=== PATIENT | female | born 1990 | race Two or more races ===

== ENCOUNTER 2016-11-26 17:50 | Emergency (ER) | payer MEDICAID ==
[~2016-11-26] VITALS: Ht 157.5 cm; Wt 56.7 kg
[~2016-11-26 17:50] MED LIST: ACETAMINOPHEN-1 EAC1 ORAL; ASPIRIN325 MG ORAL; AZITHROMYCIN250 MG ORAL; BACTRIM DS TAB1 EAC1 ORAL; IBUPROFEN600 MG ORAL; IBUPROFEN800 M1 PO; MACROBID100 MG ORAL; NITROFURANTOIN100 M2 ORAL; NKM; NORCO 5-325 TA1 EACH ORAL; PHENAZOPYRIDIN200 MG ORAL; VICODIN 5-5001 EACH PO
[2016-11-26 19:26] LABS: APPEARANCE,URINE SLIGHTLY CLOUDY; KETONES,URINE 1+ (NEGATIVE); LEUKOCYTE ESTERASE ,URINE 3+ (NEGATIVE); NITRITE,URINE POSITIVE (NEGATIVE); PH,URINE 5 (4.5-8.0); PROTEIN,URINE 2+ (NEGATIVE); UROBILINOGEN,URINE NORMAL MG/DL (0.0-1.0)
[2016-11-26 19:35] LABS: AMORPHOUS SEDIMENT,UR FEW /LPF; BACTERIA,URINE MODERATE /HPF; SQUAMOUS EPITHELIAL CELL,UR FEW /LPF (NONE/OCC)
[2016-11-26] MEDS ORDERED: PROAIR HFA8.5 GM INH (19:36)
[2016-11-26] MEDS ORDERED: ADVAIR 500-501 EACH INH (19:36)
[2016-11-26] MEDS ORDERED: NITROFURANTOIN100 M2 ORAL (19:36)
[2016-11-26 19:50] VITALS: BP 117/76
--- NOTE | 2016-11-26 23:00 | Emergency Room Report ---
History of Present Illness General Chief Complaint: Female Urogenital Problems Source: Patient Present Illness HPI The patient is a 26 old female presenting for possible urinary tract infection. The patient states that she has had UTIs in the past which have felt similar. The patient denies dysuria but does admit to increased urinary frequency. She denies hematuria or vaginal discharge. The patient denies any other symptoms including nausea, vomiting, fever, chills, flank pain Allergies: Coded Allergies: CEFIXIME (Verified Allergy, Severe, rash, 02/13/13) Patient History Past Medical History: see triage record Pertinent Family History: none Last Menstrual Period: 4-2 Now: No Reviewed Nursing Documentation: PMH: Agreed, PSxH: Agreed Nursing Documentation-PMH Past Medical History: No History, Except For Hx Asthma: Yes Review of Systems All Other Systems: negative except mentioned in HPI Physical Exam Vital Signs Date Time Temp Pulse Resp B/P Pulse Ox O2 Delivery O2 Flow Rate FiO2 11/26/16 18:12 98.1 108 18 117/76 99 Room Air Sp02 EP Interpretation: reviewed, normal General Appearance: no apparent distress, alert, GCS 15, non-toxic Head: normocephalic, atraumatic Eyes: bilateral eye PERRL, bilateral eye normal inspection Gastrointestinal: normal bowel sounds, soft, no mass, no guarding, no hernia, tenderness - suprapubic Genitourinary: normal inspection, no CVA tenderness Musculoskeletal: back normal, gait/station normal, normal range of motion, non- tender Neurologic: alert, oriented x3, responsive, motor strength/tone normal, sensory intact, speech normal Psychiatric: judgement/insight normal, memory normal, mood/affect normal, no suicidal/homicidal ideation Skin: normal color, no rash, warm/dry, well hydrated Lymphatic: no adenopathy Medical Decision Making PA Attestation Dr. Constantino is my supervising physician. Patient management was discussed with my supervising physician Diagnostic Impression: Primary Impression: Urinary tract infection Qualified Codes: N39.0 - Urinary tract infection, site not specified; R31.9 - Hematuria, unspecified Additional Impression: Asthma Qualified Codes: J45.21 - Mild intermittent asthma with (acute) exacerbation ER Course The patient is a 26 old female presenting for possible urinary tract infection Differential diagnosis considered but not limited to: UTI, vaginitis, pyelonephritis, pyelonephrosis, PID, ectopic PE: Vitals WNL. NAD. Abdomen: Normal appearance. Non distended. No ecchymosis. Normal BS. + TTP over suprapubic region. No McBurney point tenderness. No guarding. No CVA tenderness Lungs CTA bilat Urinalysis is consistent with UTI. The patient will be discharged with a prescription for Macrobid and is given a refill of asthma medications. ER precautions are given Laboratory Tests Test 11/26/16 18:45 Urine Color Yellow Urine Appearance Slightly cloudy Urine pH 5 (4.5-8.0) Urine Specific [place] 1.025 (1.005-1.035) Urine Protein 2+ (NEGATIVE) H Urine Glucose (UA) Negative (NEGATIVE) Urine Ketones 1+ (NEGATIVE) H Urine Occult Blood 3+ (NEGATIVE) H Urine Nitrite Positive (NEGATIVE) H Urine Bilirubin Negative (NEGATIVE) Urine Urobilinogen Normal MG/DL (0.0-1.0) Urine Leukocyte Esterase 3+ (NEGATIVE) H Urine RBC 10-15 /HPF (0 - 2) H Urine WBC 5-10 /HPF (0 - 2) H Urine Squamous Epithelial Cells Few /LPF (NONE/OCC) Urine Amorphous Sediment Few /LPF (NONE) H Urine Bacteria Moderate /HPF (NONE) H Urine HCG, Qualitative Negative Lab Results Impression Consistent with UTI Last Vital Signs Date Time Temp Pulse Resp B/P Pulse Ox O2 Delivery O2 Flow Rate FiO2 11/26/16 19:50 98.1 85 18 117/76 99 Room Air Status: improved Disposition: HOME, SELF-CARE Condition: Improved Scripts Nitrofurantoin Monohyd/M-Cryst* (MACROBID 100 MG*) 100 Mg Capsule 100 MG ORAL EVERY 12 HOURS, #14 CAP Prov: TERZIAN,RANJEET P.A. 11/26/16 Fluticasone/Salmeterol (Advair 500-50 Diskus) 1 Each Blst.w.dev 1 PUFF INH EVERY 12 HOURS, #1 EA Prov: TERZIAN,RANJEET P.A. 11/26/16 Albuterol Sulfate* (PROAIR HFA*) 8.5 Gm Hfa.aer.ad 2 PUFFS INH Q6H, #8.5 GM 0 Refills Prov: TERZIAN,RANJEET P.A. 11/26/16 Patient Instructions: Asthma, Adult, Urinary Tract Infection Additional Instructions: I discussed my findings with the patient. All questions and concerns have been answered. Treatment and medication compliance have been addressed. I advised the patient that they need to follow up with PMD in 3-5 days. Return to ED if symptoms worsen, new symptoms arise, or if needed for any reason. Patient verbalized understanding of discharge instructions. RANJEET WOLF Nov 26, 2016 23:00
== END 2016-11-26 19:50 | disposition home or self-care (01) ==
LOC: EMR 18:35
DX: N39.0 Urinary tract infection, site not specified (principal); R31.9 Hematuria, unspecified; J45.21 Mild intermittent asthma with (acute) exacerbation; Z88.1 Allergy status to other antibiotic agents
CPT/HCPCS: 81003; 81025; 87086; 87181; 99284

== ENCOUNTER 2017-04-23 16:32 | Emergency (ER) | payer MEDICAID ==
[~2017-04-23] VITALS: Ht 157.5 cm; Wt 56.7 kg
[~2017-04-23 16:32] MED LIST changes: +ADVAIR 500-501 EACH INH; +PROAIR HFA8.5 GM INH
[2017-04-23] MEDS ORDERED: TRAMADOL HCL50 MG ORAL (17:49)
[2017-04-23] MEDS ORDERED: IBUPROFEN600 MG ORAL (17:49)
[2017-04-23 18:04] VITALS: BP 131/78
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
--- NOTE | 2017-04-24 10:47 | Diagnostic Imaging Report ---
Indication: PAIN Technique: 3 views left foot Comparison: none Findings: There is mild metatarsus adductus. No acute fractures. No dislocations. The joint spaces are preserved. Impression: Negative
== END 2017-04-23 18:08 | disposition home or self-care (01) ==
LOC: EMR 16:54
DX: M25.572 Pain in left ankle and joints of left foot (principal); Q66.22 Congenital metatarsus adductus; Z88.8 Allergy status to other drugs, medicaments and biological substances
CPT/HCPCS: 99283

== ENCOUNTER 2017-11-18 22:46 | Emergency (ER) | payer MEDICAID ==
[~2017-11-18] VITALS: Ht 157.5 cm; Wt 65.8 kg
[~2017-11-18 22:46] MED LIST changes: +TRAMADOL HCL50 MG ORAL
[2017-11-18 23:30] VITALS: BP 129/56
[2017-11-18 23:45] LABS: BILIRUBIN, URINE NEGATIVE (NEGATIVE); COLOR,URINE PALE YELLOW; GLUCOSE, URINE (UA) NEGATIVE (NEGATIVE); KETONES,URINE 1+ (NEGATIVE); LEUKOCYTE ESTERASE ,URINE NEGATIVE (NEGATIVE); NITRITE,URINE NEGATIVE (NEGATIVE); PH,URINE 6.5 (4.5-8.0); PROTEIN,URINE NEGATIVE (NEGATIVE); UROBILINOGEN,URINE 1 MG/DL (0.0-1.0)
[2017-11-18] MEDS ORDERED: Ketorolac 30mg Inj IV ONE (23:45)
[2017-11-18 23:47] LABS: APPEARANCE,URINE CLEAR
[2017-11-19 00:04] LABS: BASOPHILS % (AUTO) 1.2 % (0.0-2.0); EOSINOPHILS % (AUTO) 1.1 % (0.0-3.0); HEMATOCRIT 39.8 % (37.0-47.0); HEMOGLOBIN 13.9 G/DL (12.0-16.0); LYMPHOCYTES % (AUTO) 25.2 % (20.0-45.0); MEAN CORPUSCULAR VOLUME 89 FL (80-99); MONOCYTES % (AUTO) 6.1 % (1.0-10.0); NEUTROPHILS % (AUTO) 66.5 % (45.0-75.0); PLATELET COUNT 392 K/UL (150-450); RED BLOOD COUNT 4.47 M/UL (4.20-5.40); RED CELL DISTRIBUTION WIDTH 11.6 % (11.6-14.8); WHITE BLOOD COUNT 8.8 K/UL (4.8-10.8)
[2017-11-19 00:21] LABS: ANION GAP 9 mmol/L (5-15); BLOOD UREA NITROGEN 5 mg/dL (7-18); CALCIUM 9.3 MG/DL (8.5-10.1); CARBON DIOXIDE 27 MMOL/L (21-32); CHLORIDE 101 MMOL/L (98-107); CREATININE 0.6 MG/DL (0.55-1.30); POTASSIUM 3.5 MMOL/L (3.5-5.1); SODIUM 137 MMOL/L (136-145)
[2017-11-19 00:33] LABS: ALANINE AMINOTRANSFERASE 32 U/L (12-78); ALBUMIN/GLOBULIN RATIO 1.1 (1.0-2.7); ALKALINE PHOSPHATASE 67 U/L (46-116); ASPARTATE AMINO TRANSFERASE 18 U/L (15-37); BILIRUBIN,TOTAL 1.8 MG/DL (0.2-1.0)
[2017-11-19 00:40] LABS: BILIRUBIN,DIRECT 0.2 MG/DL (0.0-0.3)
[2017-11-19] MEDS ORDERED: ZOFRAN ODT4 MG ORAL (00:45)
--- NOTE | 2017-11-19 00:46 | Emergency Room Report ---
History of Present Illness General Chief Complaint: Chest Pain Source: Patient Present Illness [facility] This is a 27 year female with no past medical history. She presents with chief complaint of vomiting. She has 4 episode in the last couple days. Doubt nauseous. No fever chills. No diarrhea. Most her pain is epigastric in nature. Denies any vaginal bleeding or discharge. No urinary complaint. Allergies: Coded Allergies: CEFIXIME (Verified Allergy, Severe, rash, 02/13/13) Patient History Past Medical History: see triage record, old chart reviewed Past Surgical History: none Pertinent Family History: none Social History: Denies: smoking Last Menstrual Period: 10/24/2017 Now: No Immunizations: other Reviewed Nursing Documentation: PMH: Agreed; PSxH: Agreed Nursing Documentation-PMH Past Medical History: No History, Except For Hx Asthma: Yes Review of Systems Eye: Denies: eye pain, blurred vision ENT: Denies: ear pain, nose congestion, throat swelling Respiratory: Denies: cough, shortness of breath Cardiovascular: Denies: chest pain, palpitations Gastrointestinal: Reports: nausea, vomiting; Denies: abdominal pain, diarrhea Musculoskeletal: Denies: back pain, joint pain Skin: Denies: rash Neurological: Denies: headache, numbness Endocrine: Denies: increased thirst, increased urine Hematologic/Lymphatic: Denies: easy bruising All Other Systems: negative except mentioned in HPI Physical Exam Vital Signs Date Time Temp Pulse Resp B/P (MAP) Pulse Ox O2 Delivery O2 Flow Rate FiO2 11/18/17 23:07 98.3 99 16 98 Room Air 98.2 11/18/17 23:30 129/56 vitals fina Sp02 EP Interpretation: reviewed, normal General Appearance: well appearing, no apparent distress, alert Head: normocephalic, atraumatic Eyes: bilateral eye PERRL, bilateral eye EOMI ENT: hearing grossly normal, normal pharynx Neck: full range of motion, supple, no meningismus Respiratory: chest non-tender, lungs clear, normal breath sounds Cardiovascular #1: regular rate, rhythm, no murmur Gastrointestinal: normal bowel sounds, non tender, no mass, no organomegaly, no bruit, non-distended Musculoskeletal: back normal, gait/station normal, normal range of motion Psychiatric: mood/affect normal Skin: warm/dry Medical Decision Making Diagnostic Impression: Primary Impression: Vomiting Qualified Codes: R11.2 - Nausea with vomiting, unspecified Additional Impression: Qualified Codes: Z3A.01 - Less than 8 weeks gestation of ER Course Patient with early . This is probably causing her symptoms. No evidence of obstruction. No evidence of ectopic. She has no bleeding or pain. I see no need for emergent ultrasound at this point. Last Vital Signs Date Time Temp Pulse Resp B/P (MAP) Pulse Ox O2 Delivery O2 Flow Rate FiO2 11/18/17 23:54 98.3 11/18/17 23:30 99 16 129/56 98 Room Air Status: improved Disposition: HOME, SELF-CARE Condition: Stable Scripts Ondansetron Odt* (ZOFRAN ODT*) 4 Mg Tab.rapdis 4 MG ORAL Q6H PRN for Nausea & Vomiting, #30 TAB 0 Refills Prov: ASHA CENTENO M.D. 11/19/17 Referrals: NOT CHOSEN IPA/,REFERRING (PCP) Additional Instructions: follow-up with your [facility] if symptom worsen or having bleeding or pain. ASHA CENTENO M.D. Nov 19, 2017 00:46
[2017-11-19 00:55] VITALS: BP 111/68
[2017-11-20] MEDS ORDERED: REGLAN10 M1 ORAL (01:14)
== END 2017-11-19 00:55 | disposition home or self-care (01) ==
LOC: EMR 23:15
DX: O21.9 Vomiting of pregnancy, unspecified (principal); Z3A.00 Weeks of gestation of pregnancy not specified
CPT/HCPCS: 36415; 80053; 81003; 81025; 82248; 83690; 85025; 96374; 96375; 99284; J1885; J2405

== ENCOUNTER 2017-11-19 22:27 | Emergency (ER) | payer MEDICAID ==
[~2017-11-19] VITALS: Ht 157.5 cm; Wt 65.8 kg
[~2017-11-19 22:27] MED LIST changes: +ZOFRAN ODT4 MG ORAL
--- NOTE | 2017-11-19 22:57 | Emergency Room Report ---
History of Present Illness General Chief Complaint: Nausea, Vomiting, and Diarrhea Source: Patient Present Illness HPI This is a 27-year-old female with no cerebrovascular past medical history. She was seen here yesterday for nausea and vomiting and was diagnosed with . I'll prescribe her Zofran OTD but pharmacist which it out to regular Zofran. She said she is unable to keep anything down. [place] dehydrated. [place] her asthma is acting up. Vomiting is nonbloody nonbilious. No vaginal bleeding. No pain. [place] weak and dehydrated. Allergies: Coded Allergies: CEFIXIME (Verified Allergy, Severe, rash, 02/13/13) Patient History Past Medical History: see triage record, old chart reviewed Past Surgical History: none Pertinent Family History: none Social History: Denies: smoking Last Menstrual Period: 10/19/2017 Now: Yes - 4 weeks : 1 Para: 0 Immunizations: other Reviewed Nursing Documentation: PMH: Agreed; PSxH: Agreed Nursing Documentation-PMH Past Medical History: No History, Except For Hx Asthma: Yes Review of Systems Eye: Denies: eye pain, blurred vision ENT: Denies: ear pain, nose congestion, throat swelling Respiratory: Denies: cough, shortness of breath Cardiovascular: Denies: chest pain, palpitations Gastrointestinal: Reports: nausea, vomiting; Denies: abdominal pain, diarrhea Musculoskeletal: Denies: back pain, joint pain Skin: Denies: rash Neurological: Denies: headache, numbness Endocrine: Denies: increased thirst, increased urine Hematologic/Lymphatic: Denies: easy bruising All Other Systems: negative except mentioned in HPI Physical Exam Vital Signs Date Time Temp Pulse Resp B/P (MAP) Pulse Ox O2 Delivery O2 Flow Rate FiO2 11/19/17 22:36 98.6 79 18 128/86 96 Room Air 98.6 vitals normal Sp02 EP Interpretation: reviewed, normal General Appearance: well appearing, no apparent distress, alert Head: normocephalic, atraumatic Eyes: bilateral eye PERRL, bilateral eye EOMI ENT: hearing grossly normal, normal pharynx Neck: full range of motion, supple, no meningismus Respiratory: chest non-tender, lungs clear, normal breath sounds Cardiovascular #1: regular rate, rhythm, no murmur Gastrointestinal: normal bowel sounds, non tender, no mass, no organomegaly, no bruit, non-distended Musculoskeletal: back normal, gait/station normal, normal range of motion Psychiatric: mood/affect normal Skin: warm/dry Medical Decision Making Diagnostic Impression: Primary Impression: Hyperemesis gravidarum Additional Impression: Dehydration during ER Course Patient presents with hyperemesis gravidarum. No vaginal bleeding. No abdominal pain. Better after 2 L of IV fluid. We'll discharge home. Last Vital Signs Date Time Temp Pulse Resp B/P (MAP) Pulse Ox O2 Delivery O2 Flow Rate FiO2 11/19/17 22:36 98.6 79 18 128/86 96 Room Air 98.6 Status: improved Disposition: HOME, SELF-CARE Condition: Stable Scripts Metoclopramide Hcl* (REGLAN*) 10 Mg Tablet 10 MG ORAL THREE TIMES A DAY, #30 TAB Prov: ASHA CENTENO M.D. 11/20/17 Additional Instructions: Follow-up with your OB in 7 days. Eat small frequent meals. You may try vitamin B 6, Benadryl, to get candy to help with the vomiting. ASHA CENTENO M.D. Nov 19, 2017 22:57
[2017-11-19] MEDS ORDERED: D5NS 1,000 ML IV ONE (23:00)
[2017-11-19] MEDS ORDERED: Metoclopramide 10mg/2ml Inj IVP ONE (23:00)
[2017-11-20 00:40] LABS: APPEARANCE,URINE CLEAR; BILIRUBIN, URINE NEGATIVE (NEGATIVE); GLUCOSE, URINE (UA) NEGATIVE (NEGATIVE); KETONES,URINE 4+ (NEGATIVE); LEUKOCYTE ESTERASE ,URINE 1+ (NEGATIVE); NITRITE,URINE NEGATIVE (NEGATIVE); PH,URINE 6.5 (4.5-8.0); PROTEIN,URINE NEGATIVE (NEGATIVE); UROBILINOGEN,URINE 8 MG/DL (0.0-1.0)
[2017-11-20 00:46] LABS: COLOR,URINE YELLOW
[2017-11-20 01:10] VITALS: BP 128/86
[2017-11-20] MEDS ORDERED: REGLAN10 M1 ORAL (01:14)
== END 2017-11-20 02:10 | disposition home or self-care (01) ==
LOC: EMR 22:50
DX: O21.0 Mild hyperemesis gravidarum (principal); Z3A.00 Weeks of gestation of pregnancy not specified; O26.899 Other specified pregnancy related conditions, unspecified trimester; E86.0 Dehydration; J45.909 Unspecified asthma, uncomplicated
CPT/HCPCS: 36415; 81003; 84702; 96374; 96375; 99284; J2765

== ENCOUNTER 2017-11-27 16:43 | Emergency (ER) | payer MEDICAID ==
[~2017-11-27] VITALS: Ht 157.5 cm; Wt 56.7 kg
[~2017-11-27 16:43] MED LIST changes: +REGLAN10 M1 ORAL
[2017-11-27] MEDS ORDERED: PROAIR HFA8.5 GM INH (16:59)
[2017-11-27] MEDS ORDERED: ALBUTEROL2.5 MG/3 M INH (16:59)
[2017-11-27 17:44] LABS: BASOPHILS % (AUTO) 1.2 % (0.0-2.0); EOSINOPHILS % (AUTO) 1.2 % (0.0-3.0); HEMATOCRIT 44.4 % (37.0-47.0); HEMOGLOBIN 15.5 G/DL (12.0-16.0); LYMPHOCYTES % (AUTO) 23.1 % (20.0-45.0); MEAN CORPUSCULAR VOLUME 88 FL (80-99); MONOCYTES % (AUTO) 6.8 % (1.0-10.0); NEUTROPHILS % (AUTO) 67.7 % (45.0-75.0); PLATELET COUNT 378 K/UL (150-450); RED BLOOD COUNT 5.02 M/UL (4.20-5.40); WHITE BLOOD COUNT 11.7 K/UL (4.8-10.8)
[2017-11-27 17:48] LABS: APPEARANCE,URINE CLEAR; BILIRUBIN, URINE NEGATIVE (NEGATIVE); GLUCOSE, URINE (UA) NEGATIVE (NEGATIVE); KETONES,URINE 4+ (NEGATIVE); LEUKOCYTE ESTERASE ,URINE 1+ (NEGATIVE); NITRITE,URINE NEGATIVE (NEGATIVE); PH,URINE 6 (4.5-8.0); PROTEIN,URINE 1+ (NEGATIVE); UROBILINOGEN,URINE 4 MG/DL (0.0-1.0)
[2017-11-27 17:52] LABS: ANION GAP 9 mmol/L (5-15); BLOOD UREA NITROGEN 8 mg/dL (7-18); CALCIUM 10.2 MG/DL (8.5-10.1); CARBON DIOXIDE 27 MMOL/L (21-32); CHLORIDE 99 MMOL/L (98-107); CREATININE 0.7 MG/DL (0.55-1.30); POTASSIUM 4.4 MMOL/L (3.5-5.1); SODIUM 135 MMOL/L (136-145)
--- NOTE | 2017-11-27 17:56 | Emergency Room Report ---
History of Present Illness General Chief Complaint: Vomiting Source: Patient Present Illness HPI 27 yo female presents to ER complaining of vomiting x3 weeks. Denies blood in vomit. Reports unable to keep food down during this time. Denies dysuria, hematuria. Reports no bowel movements during this time. Denies diarrhea. , first , no hx of or . Reports 1.5 month . Reports has not been seen by OBGYN. Denies fever, chest pain, SOB. Denies itchy skin. Denies smoking marijuana. Allergies: Coded Allergies: CEFIXIME (Verified Allergy, Severe, rash, 02/13/13) Patient History Past Medical History: see triage record Now: Yes Reviewed Nursing Documentation: PMH: Agreed; PSxH: Agreed Nursing Documentation-PMH Hx Asthma: Yes Review of Systems All Other Systems: negative except mentioned in HPI Physical Exam Vital Signs Date Time Temp Pulse Resp B/P (MAP) Pulse Ox O2 Delivery O2 Flow Rate FiO2 11/27/17 16:57 98.2 79 17 120/84 98 Room Air 98.2 Sp02 EP Interpretation: reviewed, normal General Appearance: well appearing, no apparent distress, alert, GCS 15, non- toxic Head: normocephalic, atraumatic Eyes: bilateral eye normal inspection, bilateral eye PERRL ENT: hearing grossly normal, normal pharynx, no angioedema, normal voice, uvula midline, moist mucus membranes Neck: full range of motion Respiratory: lungs clear, normal breath sounds, no rhonchi, no respiratory distress, no accessory muscle use, no wheezing, speaking full sentences Cardiovascular #1: regular rate, rhythm, no edema Gastrointestinal: non tender, soft, no mass, non-distended, no guarding, no rebound, other - negative Segura, negative Rovsing, negative Obturator Genitourinary: no CVA tenderness Musculoskeletal: back normal, digits/nails normal, gait/station normal, normal range of motion, non-tender Neurologic: alert, oriented x3, responsive, motor strength/tone normal, sensory intact Psychiatric: mood/affect normal Skin: no rash Lymphatic: no adenopathy Medical Decision Making PA Attestation Dr. Miranda is my supervising Physician whom patient management has been discussed with. Diagnostic Impression: Primary Impression: Vomiting during Additional Impression: Sludge in gallbladder ER Course Pt presents to ED c/o vomiting during . DDX considered but are not limited to threatened , incomplete , UTI, hyperemesis gravidum, gastritis, cholecystitis. VITAL SIGNS are WNL, patient is afebrile. Ordered CBC, CMP, Type and Screen, UA, UCG, bHCG, IV NS and pelvic US. Zofran. Informed patient of black box warning with Zofran use. Patient ok with use. ER COURSE: CBC and CMP unremarkable, no elevation in WBC or LFTs Lipase WNL UA results negative for nitrites, few WBC, few bacteria, low suspicion for UTI, does not require treatment at this time. Return to ER if symptoms present. Urine positive Lipase WNL BetaHCG [id number] Rh status antibody negative Blood type O positive Patient informed of results. US shows normal heart tones, sludge in gallbladder per US settlement technician. Patient instructed she needs outpatient followup, stable for discharge. Patient reports she feels better, resting comfortably, talking without difficulty, laughing and smiling. Informed patient to take Tylenol only for pain symptoms, do not take Motrin/ Ibuprofen. BRAT diet: bananas, rice, apple sauce toast. Informed patient likely hyperemesis gravidum secondary to . Patient drinking water and eating "cheese sticks" in ER without difficulty. Patient OK for discharge to home. DISCHARGE: -Rx provided for Tylenol for pain At this time pt. is stable for d/c to home. At this time patient is resting comfortably, in no acute distress, nontoxic appearing, smiling and talking without difficulty. Will provide printed patient care instructions, and any necessary prescriptions. Patient instructed to follow with OBGYN for further treatment and referral as needed. Care plan and follow up instructions have been discussed with the patient prior to discharge. Patient reports understanding and agreement to treatment plan. Patient questions asked and answered. ER precautions given, patient instructed to return to ER immediately for any new or worsening of symptoms. Labs Test 11/27/17 17:28 11/27/17 17:30 White Blood Count 11.7 K/UL (4.8-10.8) Red Blood Count 5.02 M/UL (4.20-5.40) Hemoglobin 15.5 G/DL (12.0-16.0) Hematocrit 44.4 % (37.0-47.0) Mean Corpuscular Volume 88 FL (80-99) Mean Corpuscular Hemoglobin 30.8 PG (27.0-31.0) Mean Corpuscular Hemoglobin Concent 34.9 G/DL (32.0-36.0) Red Cell Distribution Width 12.0 % (11.6-14.8) Platelet Count 378 K/UL (150-450) Mean Platelet Volume 5.6 FL (6.5-10.1) Neutrophils (%) (Auto) 67.7 % (45.0-75.0) Lymphocytes (%) (Auto) 23.1 % (20.0-45.0) Monocytes (%) (Auto) 6.8 % (1.0-10.0) Eosinophils (%) (Auto) 1.2 % (0.0-3.0) Basophils (%) (Auto) 1.2 % (0.0-2.0) Sodium Level 135 MMOL/L (136-145) Potassium Level 4.4 MMOL/L (3.5-5.1) Chloride Level 99 MMOL/L (98-107) Carbon Dioxide Level 27 MMOL/L (21-32) Anion Gap 9 mmol/L (5-15) Blood Urea Nitrogen 8 mg/dL (7-18) Creatinine 0.7 MG/DL (0.55-1.30) Estimat Glomerular Filtration Rate > 60 mL/min (>60) Glucose Level 94 MG/DL (74-106) Calcium Level 10.2 MG/DL (8.5-10.1) Total Bilirubin 1.6 MG/DL (0.2-1.0) Direct Bilirubin 0.3 MG/DL (0.0-0.3) Aspartate Amino Transf (AST/SGOT) 21 U/L (15-37) Alanine Aminotransferase (ALT/SGPT) 24 U/L (12-78) Alkaline Phosphatase 63 U/L (46-116) Total Protein 8.9 G/DL (6.4-8.2) Albumin 4.6 G/DL (3.4-5.0) Globulin 4.3 g/dL Albumin/Globulin Ratio 1.1 (1.0-2.7) Lipase 112 U/L (73-393) Human Chorionic Gonadotropin, Quant 23321 mIU/mL (1-6) Urine Color Yellow Urine Appearance Clear Urine pH 6 (4.5-8.0) Urine Specific [place] 1.020 (1.005-1.035) Urine Protein 1+ (NEGATIVE) Urine Glucose (UA) Negative (NEGATIVE) Urine Ketones 4+ (NEGATIVE) Urine Occult Blood Negative (NEGATIVE) Urine Nitrite Negative (NEGATIVE) Urine Bilirubin Negative (NEGATIVE) Urine Urobilinogen 4 MG/DL (0.0-1.0) Urine Leukocyte Esterase 1+ (NEGATIVE) Urine RBC 0-2 /HPF (0 - 2) Urine WBC 2-4 /HPF (0 - 2) Urine Squamous Epithelial Cells Few /LPF (NONE/OCC) Urine Bacteria Few /HPF (NONE) Urine HCG, Qualitative Positive (NEGATIVE) CT/MRI/US Diagnostic Results CT/MRI/US Diagnostic Results #1: Imaging Test Ordered: US pelvis Impression per US settlement technician normal [facility] gallbladder sludge Official reading Positive for 7 week 2 day single live intrauterine Small subchorionic hemorrhage CT/MRI/US Diagnostic Results #2: Imaging Test Ordered: US abdomen Impression Gallbladder sludge. Negative for stones or dilated ducts Otherwise unremarkable exam Notes inability to visualize the spleen Last Vital Signs Date Time Temp Pulse Resp B/P (MAP) Pulse Ox O2 Delivery O2 Flow Rate FiO2 11/27/17 16:57 98.2 79 17 120/84 98 Room Air 98.2 Disposition: HOME, SELF-CARE Condition: Stable Referrals: NOT CHOSEN IPA/MD,REFERRING (PCP) Patient Instructions: Cholestasis of , Hyperemesis Gravidarum, Morning Sickness, [id number] Additional Instructions: Followup with primary care provider in 3 -5 days. Followup with OBGYN tomorrow and at scheduled appointment next week. Discuss further treatment at that time. Avoid spicy foods, avoid dairy foods. Avoid fatty foods. BRAT diet: bananas, rice, apple sauce, toast. Take medications as directed. Patient questions asked and answered. ER precautions given, patient instructed to return to ER immediately for any new or worsening of symptoms. Blood type O positive Rh antibody negative [facility] [id number] US report shows good FHR. Gallbladder sludge. LFTs and Lipase WNL. Artem Edward Nov 27, 2017 17:56
[2017-11-27 17:58] LABS: COLOR,URINE YELLOW
[2017-11-27 18:02] LABS: ALANINE AMINOTRANSFERASE 24 U/L (12-78); ALBUMIN 4.6 G/DL (3.4-5.0); ALBUMIN/GLOBULIN RATIO 1.1 (1.0-2.7); ALKALINE PHOSPHATASE 63 U/L (46-116); ASPARTATE AMINO TRANSFERASE 21 U/L (15-37); BILIRUBIN,TOTAL 1.6 MG/DL (0.2-1.0)
[2017-11-27 18:05] LABS: BILIRUBIN,DIRECT 0.3 MG/DL (0.0-0.3)
[2017-11-27 19:00] VITALS: BP 121/73
[2017-11-27 23:12] VITALS: BP 122/77
--- NOTE | 2017-11-28 15:27 | Diagnostic Imaging Report ---
Indication: Pelvic pain, positive beta hCG Technique: Transabdominal and transvaginal images Comparison: none Findings: Uterus measures 9.1 cm in length by 6.1 cm AP AP. Within the endometrium, there is a gestational sac. This demonstrates a pole with a crown-rump length of 12 mm, corresponding to an estimated gestational age of 7 weeks 2 days. There is also a yolk sac. There is positive heart activity, heart rate 163 bpm. Hypoechoic area in the upper endometrium measures 12 x 7 mm, likely reflects a small subchorionic hemorrhage. The left ovary measures 2.7 cm in length. The right ovary measures 3 cm in length. No adnexal mass. No free cul-de-sac fluid. No myometrial abnormality. Impression: Positive for 7 week 2 day single live intrauterine Small subchorionic hemorrhage
--- NOTE | 2017-11-28 15:54 | Diagnostic Imaging Report ---
Indication: Abdominal pain, abnormal liver function tests Technique: Otoole-scale and duplex images of the upper abdomen were obtained Comparison: none Findings: Gallbladder is filled with sludge. No definite stones, wall thickening, nor pericholecystic fluid. Sonographic Segura's sign is negative. Common bile duct measures 4 mm in diameter. No intrahepatic biliary ductal dilatation. Liver demonstrates normal echogenicity, no focal abnormality. Portal vein and hepatic veins are patent. Pancreas is unremarkable. The spleen cannot be visualized due to overlying bowel gas Left kidney measures 9.7 cm in length. Right kidney measures 10.9 cm length. Both kidneys demonstrate normal echogenicity. There is no hydronephrosis. No focal abnormality . Non-aneurysmal abdominal aorta . Impression: Gallbladder sludge. Negative for stones or dilated ducts Otherwise unremarkable exam Notes inability to visualize the spleen
== END 2017-11-27 23:12 | disposition home or self-care (01) ==
LOC: EMR 17:30
DX: O21.9 Vomiting of pregnancy, unspecified (principal); Z3A.01 Less than 8 weeks gestation of pregnancy; O26.891 Other specified pregnancy related conditions, first trimester; K82.8 Other specified diseases of gallbladder
CPT/HCPCS: 36415; 76700; 76801; 76856; 80053; 81003; 81025; 82248; 83690; 84702; 85025; 86850; 86900; 86901; 96374; 96375; 99284

== ENCOUNTER 2018-01-20 10:18 | Emergency (ER) | payer MEDICAID ==
[~2018-01-20] VITALS: Ht 160 cm; Wt 61.2 kg
[~2018-01-20 10:18] MED LIST changes: +ALBUTEROL2.5 MG/3 M INH
[2018-01-20 10:35] VITALS: BP 102/64
[2018-01-20 11:03] LABS: BASOPHILS % (AUTO) 0.6 % (0.0-2.0); EOSINOPHILS % (AUTO) 0.7 % (0.0-3.0); HEMATOCRIT 38.8 % (37.0-47.0); HEMOGLOBIN 13.1 G/DL (12.0-16.0); LYMPHOCYTES % (AUTO) 14.2 % (20.0-45.0); MEAN CORPUSCULAR VOLUME 90 FL (80-99); MONOCYTES % (AUTO) 3.7 % (1.0-10.0); NEUTROPHILS % (AUTO) 80.8 % (45.0-75.0); PLATELET COUNT 359 K/UL (150-450); RED BLOOD COUNT 4.34 M/UL (4.20-5.40); RED CELL DISTRIBUTION WIDTH 12.3 % (11.6-14.8); WHITE BLOOD COUNT 10.7 K/UL (4.8-10.8)
[2018-01-20 11:07] LABS: APPEARANCE,URINE SLIGHTLY CLOUDY; BILIRUBIN, URINE NEGATIVE (NEGATIVE); GLUCOSE, URINE (UA) NEGATIVE (NEGATIVE); KETONES,URINE NEGATIVE (NEGATIVE); LEUKOCYTE ESTERASE ,URINE 1+ (NEGATIVE); NITRITE,URINE NEGATIVE (NEGATIVE); PH,URINE 8 (4.5-8.0); PROTEIN,URINE 1+ (NEGATIVE); UROBILINOGEN,URINE NORMAL MG/DL (0.0-1.0)
[2018-01-20 11:09] LABS: COLOR,URINE YELLOW
[2018-01-20] MEDS ORDERED: Acetaminophen 500mg (ES) tab ORAL ONE (11:15)
[2018-01-20] MEDS ORDERED: Albuterol ud Inhalation HHN ONE (11:15)
[2018-01-20 11:21] LABS: ANION GAP 10 mmol/L (5-15); BLOOD UREA NITROGEN 3 mg/dL (7-18); CALCIUM 9.1 MG/DL (8.5-10.1); CARBON DIOXIDE 25 MMOL/L (21-32); CHLORIDE 101 MMOL/L (98-107); CREATININE 0.5 MG/DL (0.55-1.30); POTASSIUM 3.7 MMOL/L (3.5-5.1); SODIUM 136 MMOL/L (136-145)
[2018-01-20 11:23] LABS: ALANINE AMINOTRANSFERASE 78 U/L (12-78); ALBUMIN 3.3 G/DL (3.4-5.0); ASPARTATE AMINO TRANSFERASE 67 U/L (15-37)
[2018-01-20 11:38] LABS: ALKALINE PHOSPHATASE 51 U/L (46-116); BILIRUBIN,TOTAL 0.6 MG/DL (0.2-1.0)
[2018-01-20 11:44] LABS: ALBUMIN/GLOBULIN RATIO 0.8 (1.0-2.7)
--- NOTE | 2018-01-20 12:54 | Emergency Room Report ---
History of Present Illness General Chief Complaint: General Complaint Source: Patient, Medical Record Present Illness HPI This patient is . She is approximately 16 weeks . She has had an ultrasound previously that was normal. She states that over the past 4 days she has had multiple episodes of nausea and vomiting. She denies diarrhea. She states that she has had constipation. She also complains of some achy low back pain. She states she's also been getting migraine headaches over the past month. She states that she believes that the migraines are causing her episodes of vomiting. She states that she has noticed that her asthma has been acting up. She is out of her albuterol inhaler. She denies cough or congestion. She denies abnormal vaginal discharge. She denies pelvic pain. She denies vaginal bleeding. She has no other complaints. Allergies: Coded Allergies: CEFIXIME (Verified Allergy, Severe, rash, 02/13/13) Patient History Past Medical History: none, see triage record, asthma Social History: Denies: smoking, alcohol use, drug use Last Menstrual Period: 4 months Now: Yes Reviewed Nursing Documentation: PMH: Agreed; PSxH: Agreed Nursing Documentation-PMH Past Medical History: No History, Except For Hx Asthma: Yes Review of Systems All Other Systems: negative except mentioned in HPI Physical Exam Vital Signs Date Time Temp Pulse Resp B/P (MAP) Pulse Ox O2 Delivery O2 Flow Rate FiO2 01/20/18 10:26 98.2 100 18 97/63 96 Room Air 98.2 01/20/18 11:28 21 Sp02 EP Interpretation: reviewed, normal General Appearance: no apparent distress, alert, GCS 15, non-toxic Head: normocephalic, atraumatic Eyes: bilateral eye normal inspection, bilateral eye PERRL ENT: hearing grossly normal, normal pharynx, no angioedema, normal voice Neck: full range of motion, supple/symm/no masses Respiratory: chest non-tender, lungs clear, normal breath sounds, speaking full sentences Cardiovascular #1: regular rate, rhythm, no edema Gastrointestinal: normal bowel sounds, non tender, soft, non-distended, no guarding, no rebound Rectal: deferred Musculoskeletal: back normal, gait/station normal, normal range of motion, non- tender Neurologic: alert, oriented x3, responsive, motor strength/tone normal, sensory intact, speech normal Psychiatric: judgement/insight normal, memory normal, mood/affect normal, no suicidal/homicidal ideation Skin: normal color, no rash, warm/dry, well hydrated Medical Decision Making Diagnostic Impression: Primary Impression: Frequent headaches Additional Impressions: Nausea & vomiting Asthma ER Course This patient isn't is 4 months and presents with it appears to be severe headaches versus migraines. Possibly this is triggered by . The patient also has a history of asthma and is out of her asthma inhaler and requesting a refill. There were no red flags on physical exam or history. I do not suspect meningitis, intracranial bleed, sinusitis. No emergency medical condition was identified. The patient was given return precautions and followup instructions. Laboratory workup to include CBC, CMP, urinalysis are unremarkable and noncontributory. The patient was given 2 L of IV fluids. She is also given Tylenol and had excellent resolution of her symptoms. She underwent ultrasound of the pelvis that showed an intrauterine consistent with dates. She has a follow-up in 4 days for a full anatomical ultrasound. She is instructed to follow-up with her primary OB. She is given return precautions and follow-up instructions. Laboratory Tests Test 01/20/18 10:45 01/20/18 10:50 Urine Color Yellow Urine Appearance Slightly cloudy Urine pH 8 (4.5-8.0) Urine Specific Mars 1.015 (1.005-1.035) Urine Protein 1+ (NEGATIVE) H Urine Glucose (UA) Negative (NEGATIVE) Urine Ketones Negative (NEGATIVE) Urine Occult Blood Negative (NEGATIVE) Urine Nitrite Negative (NEGATIVE) Urine Bilirubin Negative (NEGATIVE) Urine Urobilinogen Normal MG/DL (0.0-1.0) Urine Leukocyte Esterase 1+ (NEGATIVE) H Urine RBC 0-2 /HPF (0 - 2) Urine WBC 2-4 /HPF (0 - 2) Urine Squamous Epithelial Cells Moderate /LPF (NONE/OCC) H Urine Bacteria Few /HPF (NONE) White Blood Count 10.7 K/UL (4.8-10.8) Red Blood Count 4.34 M/UL (4.20-5.40) Hemoglobin 13.1 G/DL (12.0-16.0) Hematocrit 38.8 % (37.0-47.0) Mean Corpuscular Volume 90 FL (80-99) Mean Corpuscular Hemoglobin 30.3 PG (27.0-31.0) Mean Corpuscular Hemoglobin Concent 33.9 G/DL (32.0-36.0) Red Cell Distribution Width 12.3 % (11.6-14.8) Platelet Count 359 K/UL (150-450) Mean Platelet Volume 5.4 FL (6.5-10.1) L Neutrophils (%) (Auto) 80.8 % (45.0-75.0) H Lymphocytes (%) (Auto) 14.2 % (20.0-45.0) L Monocytes (%) (Auto) 3.7 % (1.0-10.0) Eosinophils (%) (Auto) 0.7 % (0.0-3.0) Basophils (%) (Auto) 0.6 % (0.0-2.0) Sodium Level 136 MMOL/L (136-145) Potassium Level 3.7 MMOL/L (3.5-5.1) Chloride Level 101 MMOL/L (98-107) Carbon Dioxide Level 25 MMOL/L (21-32) Anion Gap 10 mmol/L (5-15) Blood Urea Nitrogen 3 mg/dL (7-18) L Creatinine 0.5 MG/DL (0.55-1.30) L Estimate Glomerular Filtration Rate > 60 mL/min (>60) Glucose Level 86 MG/DL (74-106) Calcium Level 9.1 MG/DL (8.5-10.1) Total Bilirubin 0.6 MG/DL (0.2-1.0) Aspartate Amino Transferase (AST) 67 U/L (15-37) H Alanine Aminotransferase (ALT) 78 U/L (12-78) Alkaline Phosphatase 51 U/L (46-116) Total Protein 7.5 G/DL (6.4-8.2) Albumin 3.3 G/DL (3.4-5.0) L Globulin 4.2 g/dL Albumin/Globulin Ratio 0.8 (1.0-2.7) L Human Chorionic Gonadotropin, Quant 19801 mIU/mL (1-6) H CT/MRI/US Diagnostic Results CT/MRI/US Diagnostic Results : Imaging Test Ordered: Pelvis US Impression 15week IUP. See official report. Last Vital Signs Date Time Temp Pulse Resp B/P (MAP) Pulse Ox O2 Delivery O2 Flow Rate FiO2 6/11/18 11:42 93 20 99 Room Air 21 01/20/18 11:19 98.2 01/20/18 10:35 102/64 Disposition: HOME, SELF-CARE Condition: Improved Referrals: NOT CHOSEN [facility]/,REFERRING (PCP) April Miranda DO Jan 20, 2018 12:54
[2018-01-20 13:47] VITALS: BP 108/64
[2018-01-20] MEDS ORDERED: MIRALAX17 G2 ORAL (14:01)
[2018-01-20] MEDS ORDERED: ALBUTEROL SULF8.5 GM INH (14:01)
[2018-01-20 14:15] VITALS: BP 108/64
--- NOTE | 2018-01-20 16:23 | Diagnostic Imaging Report ---
Indication: Abdominal pain, vomiting, patient Technique: Transabdominal images of the uterus and fetus Comparison: none Findings: Is a single live intrauterine . This demonstrates positive heart activity, heart rate 150 bpm. There is a posterior fundal placenta, which was internal cervical os. Cervix is closed, endocervical canal measuring 42 mm. Normal amniotic fluid volume, amniotic fluid index 14.6 cm. measurements as follows: Biparietal diameter 30 mm, 15 weeks 4 days; head circumference one 23 mm, 16 weeks one day; abdominal circumference 99 mm, 15 weeks 6 days; femur length 18 mm, 15 weeks 3 days. Estimated gestational age by average of ultrasound measurements is 15 weeks 5 days greater than gestational age by dates 13 weeks 4 days. Estimated date of delivery 07/09/2018 Only limited assessment of the anatomy, due to early stage of , emergent nature of the exam. Normal cord insertion, cisterna magnum, cerebellum, spine demonstrated Impression: 15 week 5 day, by average ultrasound measurements, single live intrauterine . No unusual features
== END 2018-01-20 16:00 | disposition home or self-care (01) ==
LOC: EMR 11:34
DX: O26.892 Other specified pregnancy related conditions, second trimester (principal); Z3A.16 16 weeks gestation of pregnancy; G43.909 Migraine, unspecified, not intractable, without status migrainosus; M54.5 Low back pain; J45.909 Unspecified asthma, uncomplicated; R11.2 Nausea with vomiting, unspecified
CPT/HCPCS: 36415; 76805; 80053; 81003; 84702; 85025; 94640; 94664; 96374; 96375; 99284

== ENCOUNTER 2018-08-16 17:09 | Emergency (ER) | payer MEDICAID, OTHER ==
[~2018-08-16] VITALS: Ht 157.5 cm; Wt 66.7 kg
[~2018-08-16 17:09] MED LIST changes: +ALBUTEROL SULF8.5 GM INH; +MIRALAX17 G2 ORAL
[2018-08-16 17:19] VITALS: BP 120/73
--- NOTE | 2018-08-16 17:32 | NUR ---
ED Nurse Note: Patient presents to ER due to left shoulder pain. Per patient, it popped out yesteday and she put it back. She states 'I can't hold my baby'. Patient also c/o chest tightness; attemtped to relieve sym with inhaler. Regular, unlabored breathing noted. Able to speak full sentence without SOB. No audible wheezing noted.
--- NOTE | 2018-08-16 18:30 | NUR ---
ED Nurse Note: followed up [facility]e with xray
--- NOTE | 2018-08-16 19:07 | Emergency Room Report ---
History of Present Illness General Chief Complaint: Pain Source: Patient (Adelita Curiel) Present Illness HPI 27-year-old female with one-year history of left shoulder pain here complaining of popping sensation of left shoulder after lifting her 1-year-old child times one day. She denies pain radiation, rating the pain in her mid and 5 out of 10 , increased with abduction. Has tingling numbness. He has not taken medication for pain. Patient does not recall any fall or injury. She has not been to her primary care provider regarding her shoulder pain. Patient denies chest pain, shortness of breath, palpitations, headache, dizziness nausea vomiting. Patient is here with her friend and keeps laughing at every question. (Adelita Curiel) Allergies: Coded Allergies: CEFIXIME (Verified Allergy, Severe, rash, 02/13/13) Patient History Past Medical History: see triage record Past Surgical History: none Pertinent Family History: none Last Menstrual Period: on period Now: No Reviewed Nursing Documentation: PMH: Agreed; PSxH: Agreed (Adelita Curiel) Nursing Documentation-PMH Past Medical History: No History, Except For Hx Asthma: Yes (Adelita Curiel) Review of Systems All Other Systems: negative except mentioned in HPI (Adelita Curiel) Physical Exam Vital Signs Date Time Temp Pulse Resp B/P (MAP) Pulse Ox O2 Delivery O2 Flow Rate FiO2 08/16/18 17:19 97.7 96 16 120/73 98 Room Air Sp02 EP Interpretation: reviewed, normal General Appearance: normal inspection, well appearing, no apparent distress Head: normocephalic, atraumatic Eyes: bilateral eye normal inspection, bilateral eye PERRL ENT: normal ENT inspection, normal pharynx, no angioedema Neck: normal inspection, full range of motion, supple Respiratory: normal inspection, no rhonchi, no retraction, no wheezing Cardiovascular #1: normal inspection, no gallop, no murmur Cardiovascular #2: 2+ radial (R), 2+ radial (L) Gastrointestinal: normal inspection, soft Rectal: deferred Genitourinary: deferred Musculoskeletal: back normal, gait/station normal, normal range of motion, other - tenderness over left shoulder, no dislocation noted, patient is able to remove her shirt with both arms without pain. Guerrero and empty can test negative Neurologic: normal inspection, alert, oriented x3 Psychiatric: normal inspection, judgement/insight normal, memory normal Skin: normal inspection, normal color, no rash, warm/dry Lymphatic: normal inspection, no adenopathy (Adelita Curiel) Medical Decision Making PA Attestation all diagnoses and treatment plans were reviewed and discussed by supervising physician Dr. Awan (Adelita Curiel) Diagnostic Impression: Primary Impression: Chronic shoulder pain Additional Impression: Muscle spasm ER Course 27-year-old female with one-year history of left shoulder pain here complaining of popping sensation of left shoulder after lifting her 1-year-old child times one day. She denies pain radiation, rating the pain in her mid and 5 out of 10 , increased with abduction. Has tingling numbness. He has not taken medication for pain. Patient does not recall any fall or injury. She has not been to her primary care provider regarding her shoulder pain. Patient denies chest pain, shortness of breath, palpitations, headache, dizziness nausea vomiting. Patient is here with her friend and keeps laughing at every question. Ddx considered but are not limited to Left shoulder sprain, chronic shoulder pain, muscle spasm and a shoulder dislocation Vital signs: are WNL, pt. is afebrile H&PE are most consistent with muscle spasm and chronic shoulder pain ORDERS: shoulder x-ray, Tylenol 500 ED INTERVENTIONS: arm sling DISCHARGE: At this time pt. is stable for d/c to home. Will provide printed patient care instructions, and any necessary prescriptions. Care plan and follow up instructions have been discussed with the patient prior to discharge. patient is no longer breast-feeding, occasions of Tylenol since patient later tells me that she is allergic to ibuprofen. Arm sling applied, follow with a primary care provider for MRI and further imaging of the left shoulder avoid strenuous physical activity alternate between icing and heating (Adelita Curiel) Other X-Ray Diagnostic Results Other X-Ray Diagnostic Results : X-Ray ordered: lleft shoulder # of Views/Limited Vs Complete: 3 View Indication: Swelling EP Interpretation: Yes PA Xray: Interpretation reviewed, by supervising MD, and agrees with findings. Interpretation: no dislocation, no soft tissue swelling, no fractures Impression: No acute disease Electronically Signed by: Adelita LIMA Scribe Text FINDINGS: Bones/joints: Unremarkable. No acute fracture. No dislocation. Soft tissues: Unremarkable. IMPRESSION: Normal left shoulder x-rays. (Adelita Curiel) Other X-Ray Diagnostic Results : Electronically Signed by: CLARENCE documentation reviewed by me and is accurate, Ron Awan MD (Ron Awan MD) Last Vital Signs Date Time Temp Pulse Resp B/P (MAP) Pulse Ox O2 Delivery O2 Flow Rate FiO2 08/16/18 17:19 97.7 96 16 120/73 98 Room Air (Adelita Curiel) Disposition: HOME, SELF-CARE Condition: Stable Scripts Acetaminophen* (TYLENOL EXTRA STRENGTH*) 500 Mg Tablet 500 MG ORAL Q8H PRN for Prn Headache/Temp > 101, #30 TAB 0 Refills Prov: Adelita Curiel 08/16/18 Referrals: Bart VALLADARES,REFERRING (PCP) Patient Instructions: Muscle Cramps and Spasms, [id number], Shoulder Pain, [id number] Additional Instructions: Have primary care doctor or Dr. BUENO as she chronic shoulder pain needs further assessment. Arm sling and avoid lifting heavy objects. Take Tylenol or ibuprofen when breast-feeding Tylenol or low-dose of ibuprofen is okay to take Adelita Curiel Aug 16, 2018 19:07 Ron Awan MD Aug 17, 2018 14:21
[2018-08-16] MEDS ORDERED: IBUPROFEN600 MG ORAL (19:11)
[2018-08-16] MEDS ORDERED: TYLENOL EXTRA500 MG ORAL (19:20)
[2018-08-16 19:25] VITALS: BP 125/76
--- NOTE | 2018-08-16 19:26 | NUR ---
ED Nurse Note: Patient seen, treated, medically cleared for discharged from medical care. Discharge instructions and prescriptions given with repeat verbalization by pt. Instructed pt to follow up care with primary care phycain within one week. Awake, alert and oriented x4. After care instructions were given. All medical devices such as ID band were removed. Patient ambulated out with all personal belongings with steady gait.
== END 2018-08-16 19:27 | disposition home or self-care (01) ==
LOC: EMR 18:15
DX: M25.512 Pain in left shoulder (principal); G89.29 Other chronic pain; M62.838 Other muscle spasm; Z88.1 Allergy status to other antibiotic agents
CPT/HCPCS: 99283

== ENCOUNTER 2018-11-13 13:07 | Emergency (ER) | payer MEDICAID, OTHER ==
[~2018-11-13] VITALS: Ht 157.5 cm; Wt 56.7 kg
[~2018-11-13 13:07] MED LIST changes: +TYLENOL EXTRA500 MG ORAL
[2018-11-13 13:10] VITALS: BP 123/82
--- NOTE | 2018-11-13 13:15 | NUR ---
ED Nurse Note: Patient walked into Ed c/o pain on the left wrist that radiates to left thumb. patient deneis any recent inury. patient is alert awake ambulatory. patient states she cannot hold any object on the left hand.
--- NOTE | 2018-11-13 13:24 | Emergency Room Report ---
History of Present Illness General Chief Complaint: Upper Extremity Injury Source: Patient Present Illness HPI 28-year-old female patient presents the ER complaining of left wrist pain for the past few months. Reports no acute injury or accident. Reports pain with movement of her thumb. Reports pain does not radiate anywhere. Denies numbness or tingling. Denies other aggravating or relieving factors. Reports has a at home. Reports she is ambidextrous however writes with her right hand. Reports has taken Motrin at home intermittently for pain symptoms. Allergies: Coded Allergies: CEFIXIME (Verified Allergy, Severe, rash, 02/13/13) Patient History Past Medical History: see triage record Last Menstrual Period: 11/06/18 Reviewed Nursing Documentation: PMH: Agreed; PSxH: Agreed Nursing Documentation-PMH Past Medical History: No Stated History Hx Asthma: Yes Review of Systems All Other Systems: negative except mentioned in HPI Physical Exam Vital Signs Date Time Temp Pulse Resp B/P (MAP) Pulse Ox O2 Delivery O2 Flow Rate FiO2 11/13/18 13:10 98.2 89 18 123/82 97 Room Air Sp02 EP Interpretation: reviewed, normal General Appearance: well appearing, no apparent distress, alert, GCS 15, non- toxic Head: normocephalic, atraumatic Eyes: bilateral eye normal inspection, bilateral eye PERRL ENT: hearing grossly normal, normal pharynx, no angioedema, normal voice, uvula midline, moist mucus membranes Neck: full range of motion Respiratory: lungs clear, normal breath sounds, no rhonchi, no respiratory distress, no accessory muscle use, no wheezing, speaking full sentences Cardiovascular #2: 2+ radial (R), 2+ radial (L) Musculoskeletal: back normal, digits/nails normal, gait/station normal, normal range of motion - Hand and phalanxes, decreased range of motion - Left wrist secondary to pain, other - Positive Finklestein's, negative phalen, no erythema or edema, no deformity, NVI, cap refill <2seconds, tender - Radial left wrist Skin: no rash Medical Decision Making PA Attestation Dr. Miranda is my supervising Physician whom patient management has been discussed with. Diagnostic Impression: Primary Impression: Tenosynovitis, de Quervain ER Course Pt. presents to the ED c/o left wrist pain. Ddx considered but are not limited to fracture, sprain, strain, contusion, dislocation, arthritis, de Quervain's tenosynovitis, carpal tunnel. No erythema, no warmth to touch, no fever, nontoxic appearing, low suspicion for septic joint. Soft compartments, no pulselessness, no pallor, no paresthesias, low suspicion for compartment syndrome at this time. Vital signs: are WNL, pt. is afebrile Ordered X-ray and pain medication. ER COURSE Provided with pain medication. An X-ray of the left wrist shows no acute fracture per the preliminary reading. Positive Sae's test, likely de Quervain's tenosynovitis causing pain symptoms. Thumb spica was applied to the left wrist and was checked afterwards by me showing good alignment and support with distal neurovascular functioning intact. Crutches provided. Patient instructed on RICE method: rest, ice, compression, elevation. Patient instructed on rest, ice and heat. Patient instructed to be WBAT Contact information for orthopedic urgent care provided, follow-up with urgent care if unable to followup with primary care provider and get referral to claim processing specialist. Followup with primary care provider. Discuss referral to ortho/pain management/ PT as needed. Discuss further imaging with MRI/CT as needed. DISCHARGE: At this time pt. is stable for d/c to home. Patient is resting comfortably, in no acute distress, nontoxic appearing, talking without difficulty. Will provide printed patient care instructions, and any necessary prescriptions. Patient instructed to follow with primary care provider in 3 - 5 days and to request further follow-up as needed. Care plan and follow up instructions have been discussed with the patient prior to discharge. Take medications as directed. Patient questions asked and answered. Patient reports understanding and agreement to treatment plan. ER precautions given, patient instructed to return to ER immediately for any new or worsening of symptoms. - Please note that this Emergency Department Report was dictated using [employer] house operator helper technology software, occasionally this can lead to erroneous entry secondary to interpretation by the dictation equipment. Other X-Ray Diagnostic Results Other X-Ray Diagnostic Results : X-Ray ordered: Left wrist # of Views/Limited Vs Complete: 3 View Indication: Pain EP Interpretation: Yes PA Xray: Interpretation reviewed, by supervising MD, and agrees with findings. Interpretation: no dislocation, no soft tissue swelling, no fractures Impression: No acute disease PA Scribe Text Oswaldo Edward PA-C Last Vital Signs Date Time Temp Pulse Resp B/P (MAP) Pulse Ox O2 Delivery O2 Flow Rate FiO2 11/13/18 13:10 98.2 89 18 123/82 97 Room Air Status: improved Disposition: HOME, SELF-CARE Condition: Stable Scripts Acetaminophen* (TYLENOL EXTRA STRENGTH*) 500 Mg Tablet 500 MG ORAL Q6H PRN for Mild Pain/Temp > 100.5, #30 TAB 0 Refills Prov: Artem Edward 11/13/18 Patient Instructions: De Quervain Tenosynovitis Additional Instructions: Patient instructed to follow up with primary care provider and discuss further referral to orthopedics/physical therapy/pain management as needed. If unable to followup with PCP, followup with orthopedic urgent care in 5-7 days , call to schedule appointment. Patient instructed on RICE method: rest, ice, compression, elevation. Patient instructed to WBAT. Take medications as directed. Patient questions asked and answered. ER precautions given, patient instructed to return to ER immediately for any new or worsening of symptoms. [facility] [address] [facility] [address] [facility], [address] [email or web address] Artem Edward Nov 13, 2018 13:24
[2018-11-13] MEDS ORDERED: Ketorolac 30mg Inj IM ONE (13:30)
--- NOTE | 2018-11-13 13:38 | NUR ---
ED Nurse Note: xray taken at bedside
[2018-11-13] MEDS ORDERED: TYLENOL EXTRA500 MG ORAL (13:53)
[2018-11-13 14:00] VITALS: BP 123/82
--- NOTE | 2018-11-13 14:01 | NUR ---
ER DISCHARGE NOTE: Patient is cleared to be discharged per ERMD, pt is aox4, on room air, with stable vital signs. pt was given dc and prescription instructions, pt was able to verbalize understanding, pt id band removed without complications. pt is able to ambulate with steady gait. pt took all belongings.
--- NOTE | 2018-11-13 15:07 | Diagnostic Imaging Report ---
Clinical Indication:Left wrist pain Technique: 3 views of the left wrist Comparison: None Findings: No acute fractures. No dislocations. The joint spaces are preserved Impression: Negative
== END 2018-11-13 14:00 | disposition home or self-care (01) ==
LOC: EMR 13:35
DX: M65.4 Radial styloid tenosynovitis [de Quervain] (principal); J45.909 Unspecified asthma, uncomplicated
CPT/HCPCS: 73110; 96372; 99283; J1885